=== PATIENT | male | born 1980 | race Two or more races ===

== ENCOUNTER 2023-04-26 00:31 | Emergency (ER) | payer OTHER ==
[~2023-04-26] VITALS: Ht 172.7 cm; Wt 106.6 kg
[2023-04-26] MEDS ORDERED: ASA81 MG (00:39)
[2023-04-26] MEDS ORDERED: ALDACTONE100 MG (00:39)
[2023-04-26] MEDS ORDERED: ZESTRIL40 M1 (00:39)
[2023-04-26] MEDS ORDERED: JARDIANCE10 MG (00:40)
[2023-04-26] MEDS ORDERED: LIPITOR40 MG (00:40)
[2023-04-26] MEDS ORDERED: HUMULIN R100 UNIT/1 (00:45)
== END 2023-04-26 04:06 ==
LOC: ER 00:31
DX: I95.9 Hypotension, unspecified (principal); R53.81 Other malaise; E11.9 Type 2 diabetes mellitus without complications; I10 Essential (primary) hypertension; Z88.8 Allergy status to other drugs, medicaments and biological substances; Z91.041 Radiographic dye allergy status

== ENCOUNTER 2023-11-06 23:37 | Emergency (ER) | payer OTHER ==
[~2023-11-06] VITALS: Ht 172.7 cm; Wt 106.6 kg
[~2023-11-06 23:37] MED LIST: ALDACTONE100 MG; ASA81 MG; HUMULIN R100 UNIT/1; JARDIANCE10 MG; LIPITOR40 MG; ZESTRIL40 M1
== END 2023-11-07 02:17 | disposition home or self-care (01) ==
LOC: ER → EDBD 23:38 → ER 23:38
DX: K30 Functional dyspepsia (principal); Z91.013 Allergy to seafood; Z88.8 Allergy status to other drugs, medicaments and biological substances